=== PATIENT | female | born 1980 | race Caucasian/White ===

== ENCOUNTER 2020-02-18 16:48 | Emergency (ER) | payer OTHER, MEDICAID ==
[~2020-02-18] VITALS: Ht 167.6 cm; Wt 77.1 kg
[~2020-02-18 16:48] MED LIST: COL100 PO; MYL80 CH; NOR10T PO; ZOF4 PO
[2020-02-18 17:07] VITALS: Ht 167.6 cm; Wt 77.1 kg
[2020-02-18 18:48] VITALS: BP 106/66
== END 2020-02-18 18:48 | disposition home or self-care (01) ==
LOC: ED 16:48
DX: S16.1XXA Strain of muscle, fascia and tendon at neck level, initial encounter (principal); V43.52XA Car driver injured in collision with other type car in traffic accident, initial encounter; Y93.I9 Activity, other involving external motion; Y92.413 State road as the place of occurrence of the external cause; Y99.8 Other external cause status
CPT/HCPCS: J1885